=== PATIENT | female | born 1965 | race African-American/Black ===

== ENCOUNTER 2018-10-02 01:46 | Inpatient (IN) | payer MEDICARE, OTHER ==
[~2018-10-02] VITALS: Ht 165.1 cm; Wt 90.3 kg
[2018-10-02] MEDS ORDERED: METHYLPREDNISOLONE SOD SUCC 125 MG/2 ML VIAL IV STA (03:04)
[2018-10-02] MEDS ORDERED: ALBUTEROL (0.083%) 2.5MG/3ML NEB HHN STA (03:04)
[2018-10-02] MEDS ORDERED: IPRATROPIUM BROMIDE (0.02%) 0.5MG/2.5ML NEB HHN STA (03:04)
[2018-10-02] MEDS ORDERED: KETOROLAC 30MG/ML VIAL IV SCH (04:45)
[2018-10-02 09:01] LABS: BASOPHILS % 0.2 % (0.0-2.0); EOSINOPHILS % 0.1 % (0.0-5.0); HEMATOCRIT. 37.6 % (36.0-48.0); HEMOGLOBIN. 12.5 g/dL (12.0-16.0); LYMPHOCYTES % 8.5 % (20.0-50.0); MEAN CORPUSCULAR HEMOGLOBIN 32.1 pg (28.0-32.0); MEAN CORPUSCULAR VOLUME 96.5 fL (81.0-99.0); MEAN PLATELET VOLUME 7.2 fl (7.4-10.4); MONOCYTES % 1.8 % (2.0-8.0); NEUTROPHILS % 89.4 % (40.0-76.0); PLATELET 308 x1000/uL (130-400); RED BLOOD CELL COUNT 3.89 mill/uL (4.2-5.4); RED CELL DISTRIBUTION WIDTH 13.9 % (11.6-14.6)
[2018-10-02 09:08] LABS: CHLORIDE 106 mEq/L (98-107)
[2018-10-02] MEDS ORDERED: DEXTROSE 50% WATER 50ML SYRINGE IV PRN (09:30)
[2018-10-02] MEDS ORDERED: IPRATROPIUM/ALBUTEROL 0.5-3(2.5)MG/3ML NEB HHN PRN (09:30)
[2018-10-02] MEDS ORDERED: CLONIDINE 0.1MG TABLET PO PRN (09:30)
[2018-10-02 10:04] VITALS: BP 145/81
[2018-10-02] MEDS ORDERED: AZITHROMYCIN 500 MG TABLET PO SCH (10:45)
[2018-10-02] MEDS: METHYLPREDNISOLONE SOD SUCC 40 MG/ML VIAL IV SCH ×2 (10:55→17:07)
[2018-10-02] MEDS: AMLODIPINE 5MG TABLET PO SCH ×2 (10:56→21:30)
[2018-10-02] MEDS: GUAIFENESIN 600MG ER TABLET PO SCH ×2 (11:59→21:31)
[2018-10-02 12:00] VITALS: BP 136/72
[2018-10-02] MEDS: KETOROLAC 30MG/ML VIAL IV PRN ×2 (12:00→18:59)
[2018-10-02] MEDS: BLOOD SUGAR DIAGNOSTIC STRIP TEST SCH ×3 (12:42→21:24)
[2018-10-02] MEDS: INSULIN LISPRO 100 UNITS/ML SUBCUT SCH ×3 (12:42→21:33)
[2018-10-02 15:53] LABS: CLARITY URINE CLEAR (CLEAR); COLOR URINE YELLOW (YELLOW); KETONES URINE 1+ (NEGATIVE); LEUKOCYTE ESTERASE URINE NEGATIVE (NEGATIVE); NITRITE URINE NEGATIVE (NEGATIVE); OCCULT BLOOD URINE 1+ (NEGATIVE); PROTEIN URINE NEGATIVE (NEGATIVE); SPECIFIC GRAVITY URINE 1.031 (1.005-1.030); UROBILINOGEN URINE 0.2 E.U./dL (0.2-1.0)
[2018-10-02] MEDS: NICOTINE 14MG PATCH TD SCH (16:06)
[2018-10-02 16:07] LABS: *AMPHETAMINES SCREEN URINE NEGATIVE (NEGATIVE); *BARBITURATES SCREEN URINE NEGATIVE (NEGATIVE); *BENZODIAZEPINES SCREEN URINE NEGATIVE (NEGATIVE); *COCAINE SCREEN URINE NEGATIVE (NEGATIVE)
[2018-10-02 16:08] LABS: CANNABINOID URINE SCREEN NEGATIVE (NEGATIVE); METHADONE URINE SCREEN NEGATIVE (NEGATIVE); OPIATES URINE SCREEN PRESUMTIVE POSITIVE (NEGATIVE); PHENCYCLIDINE URINE SCREEN NEGATIVE (NEGATIVE)
[2018-10-02] MEDS: HYDROCODONE/ACETAMINOPHEN 10/325MG TABLET PO PRN ×2 (16:49→21:32)
[2018-10-02 17:00] VITALS: BP 125/74
[2018-10-02] MEDS: MONTELUKAST SODIUM 10MG TABLET PO SCH (17:07)
[2018-10-02 17:12] LABS: INR 1.5; PROTHROMBIN TIME 14.9 sec (9.1-11.1)
[2018-10-02] MEDS: IPRATROPIUM/ALBUTEROL 0.5-3(2.5)MG/3ML NEB HHN SCH ×2 (17:47→21:12)
[2018-10-02] MEDS ORDERED: WARFARIN SODIUM 10MG TABLET PO ONE (18:00)
[2018-10-02] MEDS ORDERED: LOSA1TAB34 PO (18:21)
[2018-10-02] MEDS ORDERED: ALBU4TAB6 PO (18:21)
[2018-10-02] MEDS ORDERED: FURO-151 PO (18:21)
[2018-10-02] MEDS ORDERED: S350 PO (18:21)
[2018-10-02] MEDS ORDERED: WARF10TA44 PO (18:21)
[2018-10-02] MEDS ORDERED: CALC-1098 PO (18:21)
[2018-10-02] MEDS ORDERED: FLUT1DIS6 INH (18:21)
[2018-10-02] MEDS ORDERED: TUSSL GT (18:21)
[2018-10-02 20:00] VITALS: BP 116/58
[2018-10-02] MEDS: FAMOTIDINE 20MG/2ML VIAL IV SCH (21:30)
[2018-10-03] VITALS (7 sets, daily range): BP systolic 105–141; BP diastolic 52–73
[2018-10-03] MEDS: IPRATROPIUM/ALBUTEROL 0.5-3(2.5)MG/3ML NEB HHN SCH ×6 (00:41→21:30)
[2018-10-03] MEDS: KETOROLAC 30MG/ML VIAL IV PRN ×2 (01:08→08:02)
[2018-10-03] MEDS: METHYLPREDNISOLONE SOD SUCC 40 MG/ML VIAL IV SCH ×3 (01:14→18:00)
[2018-10-03] MEDS: BENZONATATE 100MG CAPSULE PO PRN ×2 (04:14→12:07)
[2018-10-03] MEDS: HYDROCODONE/ACETAMINOPHEN 10/325MG TABLET PO PRN ×2 (05:51→10:07)
[2018-10-03 05:57] LABS: BASOPHILS % 0.5 % (0.0-2.0); HEMATOCRIT. 34.9 % (36.0-48.0); HEMOGLOBIN. 11.8 g/dL (12.0-16.0); LYMPHOCYTES % 8.6 % (20.0-50.0); MEAN CORPUSCULAR HEMOGLOBIN 32.5 pg (28.0-32.0); MEAN CORPUSCULAR VOLUME 96.1 fL (81.0-99.0); MEAN PLATELET VOLUME 7.3 fl (7.4-10.4); MONOCYTES % 4.3 % (2.0-8.0); NEUTROPHILS % 86.6 % (40.0-76.0); PLATELET 295 x1000/uL (130-400); RED BLOOD CELL COUNT 3.63 mill/uL (4.2-5.4); RED CELL DISTRIBUTION WIDTH 13.9 % (11.6-14.6)
[2018-10-03 06:33] LABS: CHLORIDE 108 mEq/L (98-107)
[2018-10-03] MEDS: BLOOD SUGAR DIAGNOSTIC STRIP TEST SCH ×4 (07:10→21:22)
[2018-10-03] MEDS: INSULIN LISPRO 100 UNITS/ML SUBCUT SCH ×4 (07:27→21:21)
[2018-10-03] MEDS: NICOTINE 14MG PATCH TD SCH (08:00)
[2018-10-03] MEDS: LORATADINE 10MG TABLET PO SCH (08:00)
[2018-10-03] MEDS: GUAIFENESIN 600MG ER TABLET PO SCH ×2 (08:00→21:12)
[2018-10-03] MEDS: AMLODIPINE 5MG TABLET PO SCH ×2 (08:01→21:12)
[2018-10-03] MEDS: FAMOTIDINE 20MG/2ML VIAL IV SCH ×2 (08:01→21:12)
[2018-10-03] MEDS: AZITHROMYCIN 250 MG TABLET PO SCH (08:02)
[2018-10-03] MEDS ORDERED: GUAIFENESIN/CODEINE 100-10MG/5ML UDC PO NR (15:00)
[2018-10-03] MEDS: HYDROMORPHONE HCL/PF 2MG/ML CPJ IV PRN ×2 (15:43→21:13)
[2018-10-03] MEDS ORDERED: WARFARIN SODIUM 10MG TABLET PO SCH (18:00)
[2018-10-03] MEDS: MONTELUKAST SODIUM 10MG TABLET PO SCH (18:00)
[2018-10-03] MEDS: TRIAMCINOLONE ACETONIDE 0.5% CREAM 15GM TOP SCH (21:00)
[2018-10-04] VITALS: BP 125/81
[2018-10-04] MEDS: GUAIFENESIN/CODEINE 100-10MG/5ML UDC PO PRN ×4 (00:15→21:40)
[2018-10-04] MEDS: IPRATROPIUM/ALBUTEROL 0.5-3(2.5)MG/3ML NEB HHN SCH ×6 (01:14→21:24)
[2018-10-04] MEDS: METHYLPREDNISOLONE SOD SUCC 40 MG/ML VIAL IV SCH ×3 (01:18→17:56)
[2018-10-04] MEDS: HYDROCODONE/ACETAMINOPHEN 10/325MG TABLET PO PRN (01:22)
[2018-10-04 04:00] VITALS: BP 145/73
[2018-10-04] MEDS: HYDROMORPHONE HCL/PF 2MG/ML CPJ IV PRN ×3 (05:19→20:34)
[2018-10-04 05:40] LABS: PROTHROMBIN TIME 20.2 sec (9.1-11.1)
[2018-10-04] MEDS: BLOOD SUGAR DIAGNOSTIC STRIP TEST SCH ×4 (06:16→21:36)
[2018-10-04] MEDS: INSULIN LISPRO 100 UNITS/ML SUBCUT SCH ×4 (06:16→21:00)
[2018-10-04 08:30] VITALS: BP 142/79
[2018-10-04] MEDS: TRIAMCINOLONE ACETONIDE 0.5% CREAM 15GM TOP SCH (09:00)
[2018-10-04] MEDS: KETOROLAC 30MG/ML VIAL IV PRN ×2 (09:16→17:56)
[2018-10-04] MEDS: AZITHROMYCIN 250 MG TABLET PO SCH (09:16)
[2018-10-04] MEDS: GUAIFENESIN 600MG ER TABLET PO SCH ×2 (09:16→20:31)
[2018-10-04] MEDS: FAMOTIDINE 20MG/2ML VIAL IV SCH ×2 (09:17→20:32)
[2018-10-04] MEDS: AMLODIPINE 5MG TABLET PO SCH ×2 (09:17→20:32)
[2018-10-04] MEDS: NICOTINE 14MG PATCH TD SCH (09:17)
[2018-10-04] MEDS: LORATADINE 10MG TABLET PO SCH (09:17)
[2018-10-04 11:45] VITALS: BP 149/79
[2018-10-04] MEDS ORDERED: TERBUTALINE SULFATE 1MG/ML VIAL SUBCUT NR (14:40)
[2018-10-04 16:30] VITALS: BP 151/76
[2018-10-04] MEDS: MONTELUKAST SODIUM 10MG TABLET PO SCH (17:55)
[2018-10-04] MEDS ORDERED: WARFARIN SODIUM 10MG TABLET PO SCH (18:00)
[2018-10-04] MEDS: FLUTICASONE PROPIONATE 50MCG/SPRAY BOTTLE BOTHNSTRLS SCH (20:32)
[2018-10-04] MEDS: BENZONATATE 100MG CAPSULE PO PRN (21:40)
[2018-10-05] VITALS (8 sets, daily range): BP systolic 120–156; BP diastolic 42–95
[2018-10-05] MEDS: IPRATROPIUM/ALBUTEROL 0.5-3(2.5)MG/3ML NEB HHN SCH ×6 (00:52→21:55)
[2018-10-05] MEDS: METHYLPREDNISOLONE SOD SUCC 40 MG/ML VIAL IV SCH ×3 (01:27→17:35)
[2018-10-05] MEDS: TRIAMCINOLONE ACETONIDE 0.5% CREAM 15GM TOP SCH ×2 (01:28→09:38)
[2018-10-05] MEDS: HYDROMORPHONE HCL/PF 2MG/ML CPJ IV PRN ×2 (03:30→12:44)
[2018-10-05] MEDS: BLOOD SUGAR DIAGNOSTIC STRIP TEST SCH ×4 (05:32→21:05)
[2018-10-05] MEDS: GUAIFENESIN/CODEINE 100-10MG/5ML UDC PO PRN ×2 (05:34→11:47)
[2018-10-05] MEDS: BENZONATATE 100MG CAPSULE PO PRN (05:35)
[2018-10-05] MEDS: INSULIN LISPRO 100 UNITS/ML SUBCUT SCH ×4 (05:42→21:16)
[2018-10-05 07:32] LABS: INR 2.1; PROTHROMBIN TIME 20.6 sec (9.1-11.1)
[2018-10-05 07:37] LABS: BASOPHILS % 0.2 % (0.0-2.0); HEMATOCRIT. 33.2 % (36.0-48.0); HEMOGLOBIN. 10.9 g/dL (12.0-16.0); LYMPHOCYTES % 9.9 % (20.0-50.0); MEAN CORPUSCULAR HEMOGLOBIN 31.9 pg (28.0-32.0); MEAN PLATELET VOLUME 7.5 fl (7.4-10.4); MONOCYTES % 5.5 % (2.0-8.0); NEUTROPHILS % 84.4 % (40.0-76.0); PLATELET 297 x1000/uL (130-400); RED BLOOD CELL COUNT 3.43 mill/uL (4.2-5.4)
[2018-10-05] MEDS: LORATADINE 10MG TABLET PO SCH (09:36)
[2018-10-05] MEDS: AZITHROMYCIN 250 MG TABLET PO SCH (09:36)
[2018-10-05] MEDS: GUAIFENESIN 600MG ER TABLET PO SCH ×2 (09:36→20:38)
[2018-10-05] MEDS: AMLODIPINE 5MG TABLET PO SCH ×2 (09:36→20:38)
[2018-10-05] MEDS: KETOROLAC 30MG/ML VIAL IV PRN ×2 (09:37→17:35)
[2018-10-05] MEDS: FAMOTIDINE 20MG/2ML VIAL IV SCH ×2 (09:37→20:38)
[2018-10-05] MEDS: FLUTICASONE PROPIONATE 50MCG/SPRAY BOTTLE BOTHNSTRLS SCH (09:37)
[2018-10-05] MEDS: NICOTINE 14MG PATCH TD SCH (09:37)
[2018-10-05 12:59] LABS: CHLORIDE 103 mEq/L (98-107)
[2018-10-05] MEDS ORDERED: TERBUTALINE SULFATE 1MG/ML VIAL SUBCUT NR (17:00)
[2018-10-05] MEDS: MONTELUKAST SODIUM 10MG TABLET PO SCH (17:35)
[2018-10-05] MEDS ORDERED: WARFARIN SODIUM 10MG TABLET PO NR (18:00)
[2018-10-06] VITALS: BP 130/67
[2018-10-06] MEDS: IPRATROPIUM/ALBUTEROL 0.5-3(2.5)MG/3ML NEB HHN SCH ×7 (01:46→23:39)
[2018-10-06] MEDS: METHYLPREDNISOLONE SOD SUCC 40 MG/ML VIAL IV SCH ×3 (02:29→17:02)
[2018-10-06] MEDS: GUAIFENESIN/CODEINE 100-10MG/5ML UDC PO PRN ×4 (02:29→22:29)
[2018-10-06] MEDS: TRIAMCINOLONE ACETONIDE 0.5% CREAM 15GM TOP SCH ×3 (02:30→20:37)
[2018-10-06] MEDS: FLUTICASONE PROPIONATE 50MCG/SPRAY BOTTLE BOTHNSTRLS SCH ×3 (02:31→20:37)
[2018-10-06] MEDS: KETOROLAC 30MG/ML VIAL IV PRN (03:35)
[2018-10-06 04:00] VITALS: BP 147/68
[2018-10-06] MEDS: BLOOD SUGAR DIAGNOSTIC STRIP TEST SCH ×4 (06:45→20:38)
[2018-10-06 06:59] LABS: INR 1.9
[2018-10-06 08:00] VITALS: BP 132/61
[2018-10-06] MEDS: GUAIFENESIN 600MG ER TABLET PO SCH ×2 (08:28→20:38)
[2018-10-06] MEDS: LORATADINE 10MG TABLET PO SCH (08:28)
[2018-10-06] MEDS: AZITHROMYCIN 250 MG TABLET PO SCH (08:29)
[2018-10-06] MEDS: FAMOTIDINE 20MG/2ML VIAL IV SCH ×2 (08:30→20:37)
[2018-10-06] MEDS: AMLODIPINE 5MG TABLET PO SCH ×2 (08:32→20:38)
[2018-10-06] MEDS: NICOTINE 14MG PATCH TD SCH (08:32)
[2018-10-06] MEDS: HYDROCODONE/ACETAMINOPHEN 10/325MG TABLET PO PRN ×2 (08:37→20:38)
[2018-10-06] MEDS: HYDROMORPHONE HCL/PF 2MG/ML CPJ IV PRN ×3 (09:57→22:29)
[2018-10-06] MEDS: INSULIN LISPRO 100 UNITS/ML SUBCUT SCH ×3 (11:45→21:05)
[2018-10-06 12:00] VITALS: BP 141/78
[2018-10-06 16:00] VITALS: BP 154/65
[2018-10-06] MEDS: MONTELUKAST SODIUM 10MG TABLET PO SCH (17:01)
[2018-10-06] MEDS ORDERED: WARFARIN SODIUM 2MG TABLET PO NR (18:00)
[2018-10-06] MEDS ORDERED: WARFARIN SODIUM 10MG TABLET PO NR (18:00)
[2018-10-06 20:00] VITALS: BP 136/72
[2018-10-07] VITALS: BP 160/78
[2018-10-07] MEDS: METHYLPREDNISOLONE SOD SUCC 40 MG/ML VIAL IV SCH ×2 (01:34→10:57)
[2018-10-07 04:00] VITALS: BP 134/62
[2018-10-07] MEDS: IPRATROPIUM/ALBUTEROL 0.5-3(2.5)MG/3ML NEB HHN SCH ×4 (04:10→17:15)
[2018-10-07] MEDS: GUAIFENESIN/CODEINE 100-10MG/5ML UDC PO PRN (04:22)
[2018-10-07] MEDS: HYDROMORPHONE HCL/PF 2MG/ML CPJ IV PRN ×2 (04:35→10:57)
[2018-10-07] MEDS: INSULIN LISPRO 100 UNITS/ML SUBCUT SCH ×2 (06:22→12:09)
[2018-10-07] MEDS: BLOOD SUGAR DIAGNOSTIC STRIP TEST SCH ×2 (06:22→12:09)
[2018-10-07 07:33] LABS: INR 1.7; PROTHROMBIN TIME 17.1 sec (9.1-11.1)
[2018-10-07 08:00] VITALS: BP 108/63
[2018-10-07] MEDS: TRIAMCINOLONE ACETONIDE 0.5% CREAM 15GM TOP SCH (08:40)
[2018-10-07] MEDS: GUAIFENESIN 600MG ER TABLET PO SCH (08:40)
[2018-10-07] MEDS: LORATADINE 10MG TABLET PO SCH (08:40)
[2018-10-07] MEDS: AZITHROMYCIN 250 MG TABLET PO SCH (08:40)
[2018-10-07] MEDS: FAMOTIDINE 20MG/2ML VIAL IV SCH (08:40)
[2018-10-07] MEDS: FLUTICASONE PROPIONATE 50MCG/SPRAY BOTTLE BOTHNSTRLS SCH (08:40)
[2018-10-07] MEDS: NICOTINE 14MG PATCH TD SCH (08:41)
[2018-10-07] MEDS: AMLODIPINE 5MG TABLET PO SCH (08:41)
[2018-10-07 12:00] VITALS: BP 115/68
[2018-10-07 16:00] VITALS: BP 122/68
[2018-10-07 17:13] VITALS: BP 122/75
[2018-10-07] MEDS ORDERED: WARFARIN SODIUM 10MG TABLET PO NR (18:00)
[2018-10-07] MEDS ORDERED: WARFARIN SODIUM 4MG TABLET PO NR (18:00)
== END 2018-10-07 18:40 | disposition home or self-care (01) | DRG 189 ==
LOC: ER 01:46 → EDBEDREQTM 04:26 → EDBEDREQ 04:26 → ENRESERV 06:42 → CANRESERV 06:42 → ENRESERV 07:12 → 8WST 10:23
PROVIDERS: ADMIT Internal Medicine; ATTEND Internal Medicine
DX: J96.00 Acute respiratory failure, unspecified whether with hypoxia or hypercapnia (principal); J44.1 Chronic obstructive pulmonary disease with (acute) exacerbation; E44.1 Mild protein-calorie malnutrition; J44.0 Chronic obstructive pulmonary disease with (acute) lower respiratory infection; M87.852 Other osteonecrosis, left femur; E66.01 Morbid (severe) obesity due to excess calories; Z96.642 Presence of left artificial hip joint; J20.9 Acute bronchitis, unspecified; F17.210 Nicotine dependence, cigarettes, uncomplicated; E11.9 Type 2 diabetes mellitus without complications; I10 Essential (primary) hypertension; M19.90 Unspecified osteoarthritis, unspecified site; Z76.5 Malingerer [conscious simulation]; Z86.718 Personal history of other venous thrombosis and embolism; Z68.33 Body mass index [BMI] 33.0-33.9, adult; Z71.6 Tobacco abuse counseling
CPT/HCPCS: 36415; 71045; 78580; 80048; 80305; 82962; 83036; 83880; 84484; 87804; 93005; 93970; 94640; 96374; 96375; 99285; C1893; J1170; J1815; J1885; J2920; J2930; J3105; J3490; J7611; J7620

== ENCOUNTER 2019-04-16 10:19 | Emergency (ER) | payer MEDICARE, MEDICAID ==
[~2019-04-16] VITALS: Ht 165.1 cm; Wt 141.0 kg
[~2019-04-16 10:19] MED LIST: ALBU4TAB6 PO; CALC-1098 PO; FLUT1DIS6 INH; FURO-151 PO; LOSA1TAB34 PO; S350 PO; TUSSL GT; WARF10TA44 PO
[2019-04-16] MEDS ORDERED: ONDANSETRON HCL 4MG/2ML INJ IM ONE (10:45)
[2019-04-16] MEDS ORDERED: MORPHINE SULFATE 4 MG/ML CPJ (NOT FOR IM USE) IV ONE (10:45)
[2019-04-16 11:36] LABS: INR 1.6; PARTIAL THROMBOPLASTIN TIME 41.1 sec (23.4-31.0); PROTHROMBIN TIME 16.3 sec (9.6-11.0)
[2019-04-16 11:38] LABS: CHLORIDE 107 mEq/L (98-107)
[2019-04-16 11:43] LABS: BASOPHILS % 0.7 % (0.0-2.0); EOSINOPHILS % 1.3 % (0.0-5.0); HEMATOCRIT. 37.1 % (36.0-48.0); HEMOGLOBIN. 12.6 g/dL (12.0-16.0); LYMPHOCYTES % 37.6 % (20.0-50.0); MEAN CORPUSCULAR HEMOGLOBIN 32.1 pg (28.0-32.0); MEAN CORPUSCULAR VOLUME 94.3 fL (81.0-99.0); MEAN PLATELET VOLUME 7.3 fl (7.4-10.4); MONOCYTES % 8.1 % (2.0-8.0); NEUTROPHILS % 52.3 % (40.0-76.0); PLATELET 321 x1000/uL (130-400); RED BLOOD CELL COUNT 3.93 mill/uL (4.2-5.4); RED CELL DISTRIBUTION WIDTH 14.3 % (11.6-14.6)
[2019-04-16 13:00] VITALS: BP 137/51
== END 2019-04-16 13:05 | disposition home or self-care (01) ==
LOC: ER 10:19
DX: M25.561 Pain in right knee (principal); I10 Essential (primary) hypertension; J44.9 Chronic obstructive pulmonary disease, unspecified; Z87.828 Personal history of other (healed) physical injury and trauma; Z86.718 Personal history of other venous thrombosis and embolism; Z79.01 Long term (current) use of anticoagulants; Z96.649 Presence of unspecified artificial hip joint; W22.8XXA Striking against or struck by other objects, initial encounter; Y93.89 Activity, other specified; Y92.810 Car as the place of occurrence of the external cause
CPT/HCPCS: 36415; 73560; 80053; 85025; 85610; 85730; 93970; 96372; 96374; 99284; J2270; J2405

== ENCOUNTER → 2019-08-20 | Outpatient (CLI) | payer MEDICARE, MEDICAID ==
[~2019-08-20] MED LIST changes: +ALBUTEROL (0.083%) 2.5MG/3ML NEB ONE; +CARI-166 PO; -FLUT1DIS6 INH; -S350 PO; -TUSSL GT
== END | disposition home or self-care (01) ==
LOC: PF 11:02
PROVIDERS: ATTEND Internal Medicine
DX: J44.9 Chronic obstructive pulmonary disease, unspecified (principal)
CPT/HCPCS: 94060; 94727; 94729; J7611

== ENCOUNTER 2019-08-22 11:40 | Emergency (ER) | payer MEDICARE, MEDICAID ==
[~2019-08-22] VITALS: Ht 170.2 cm; Wt 150.0 kg
[~2019-08-22 11:40] MED LIST changes: -ALBUTEROL (0.083%) 2.5MG/3ML NEB ONE
[2019-08-22] MEDS ORDERED: IBUPROFEN 800MG TABLET PO ONE (12:15)
[2019-08-22] MEDS ORDERED: ACETAMINOPHEN 500MG TABLET PO ONE (12:15)
[2019-08-22] MEDS ORDERED: OXYCODONE HCL 5MG TABLET PO ONE (13:45)
[2019-08-22 14:20] VITALS: BP 166/85
== END 2019-08-22 14:20 | disposition home or self-care (01) ==
LOC: ER 11:56
DX: M23.92 Unspecified internal derangement of left knee (principal); J44.9 Chronic obstructive pulmonary disease, unspecified; E11.9 Type 2 diabetes mellitus without complications; I10 Essential (primary) hypertension; Z86.718 Personal history of other venous thrombosis and embolism; Z96.649 Presence of unspecified artificial hip joint; Z79.01 Long term (current) use of anticoagulants
CPT/HCPCS: 73560; 99284

== ENCOUNTER 2019-12-01 09:30 | Day surgery (SDC) | payer MEDICARE, MEDICAID ==
[~2019-12-01] VITALS: Ht 165.1 cm; Wt 147.0 kg
[2019-12-01 08:55] LABS: HEMATOCRIT 33.5 % (36.0-48.0); HEMOGLOBIN 11.5 g/dL (12.0-16.0); MEAN CORPUSCULAR HEMOGLOBIN 32.8 pg (28.0-32.0); MEAN CORPUSCULAR VOLUME 95.7 fL (81.0-99.0); PLATELET 311 x1000/uL (130-400); RED CELL DISTRIBUTION WIDTH 13.4 % (11.6-14.6)
[2019-12-01 09:00] LABS: CHLORIDE 111 mEq/L (98-107)
[2019-12-01 09:02] LABS: PROTHROMBIN TIME 10.4 sec (9.6-11.0)
[2019-12-01 09:07] LABS: HCG SCREEN NEGATIVE
[~2019-12-01 09:30] MED LIST changes: -CARI-166 PO; +CARI350T28 PO; +FLUT1AER INH; +HYDR-4009 PO; +LOSA100T32 PO; +POTA10TA11 PO; +TRAZ-251 PO
[2019-12-01] MEDS ORDERED: LIDOCAINE HCL 1% 20ML VIAL (Pyxis) INJ ONE (09:46)
[2019-12-01] MEDS ORDERED: IODIXANOL 320MG/ML 100 ML BOTTLE IV ONE (09:46)
[2019-12-01] MEDS ORDERED: MIDAZOLAM HCL 2 MG/2 ML VIAL ONE (09:46)
[2019-12-01] MEDS ORDERED: FENTANYL CITRATE/PF 50MCG/ML 2ML VIAL ONE (09:46)
[2019-12-01] MEDS ORDERED: ACETAMINOPHEN 325MG TABLET PO PRN (10:30)
[2019-12-01] MEDS ORDERED: ONDANSETRON HCL 4MG/2ML INJ IV PRN (10:30)
[2019-12-01] MEDS ORDERED: MORPHINE SULFATE 2 MG/ML CPJ (NOT FOR IM USE) IV PRN (10:30)
[2019-12-01] MEDS ORDERED: HYDROCODONE/APAP 7.5/325MG 1 TAB TABLET PO PRN (13:00)
[2019-12-01 13:10] VITALS: BP 142/76
== END 2019-12-01 16:46 | disposition home or self-care (01) ==
LOC: OR 09:30
PROVIDERS: ATTEND Internal Medicine Cardiovascular Disease
DX: R94.39 Abnormal result of other cardiovascular function study (principal); I50.32 Chronic diastolic (congestive) heart failure; I82.409 Acute embolism and thrombosis of unspecified deep veins of unspecified lower extremity; E66.9 Obesity, unspecified; F17.210 Nicotine dependence, cigarettes, uncomplicated; Z79.01 Long term (current) use of anticoagulants; Z79.899 Other long term (current) drug therapy; Z68.43 Body mass index [BMI] 50.0-59.9, adult; Z82.49 Family history of ischemic heart disease and other diseases of the circulatory system
CPT/HCPCS: 36415; 80048; 84703; 85027; 85610; 93005; 93458; J1644; J2250; J2405; J3010; J3490; Q9967

== ENCOUNTER 2019-12-27 22:58 | Inpatient (IN) | payer MEDICARE, MEDICAID ==
[~2019-12-27] VITALS: Ht 165.1 cm; Wt 152.0 kg
[~2019-12-27 22:58] MED LIST changes: -LOSA1TAB34 PO
[2019-12-27] MEDS ORDERED: MAGNESIUM 2 G PREMIX 50 ML IV STA (23:03)
[2019-12-27] MEDS ORDERED: IPRATROPIUM BROMIDE (0.02%) 0.5MG/2.5ML NEB HHN STA (23:03)
[2019-12-27] MEDS ORDERED: ALBUTEROL (0.083%) 2.5MG/3ML NEB HHN STA (23:03)
[2019-12-27] MEDS ORDERED: METHYLPREDNISOLONE SOD SUCC 125 MG/2 ML VIAL IV STA (23:03)
[2019-12-28] VITALS (8 sets, daily range): BP systolic 133–189; BP diastolic 52–98
[2019-12-28] MEDS ORDERED: IBUPROFEN 600MG TABLET PO ONE (00:30)
[2019-12-28 00:48] LABS: CHLORIDE 109 mEq/L (98-107)
[2019-12-28 00:59] LABS: HEMOGLOBIN 12.7 g/dL (12.0-16.0); MEAN CORPUSCULAR HEMOGLOBIN 33.4 pg (28.0-32.0); MEAN CORPUSCULAR VOLUME 97.4 fL (81.0-99.0); PLATELET 234 x1000/uL (130-400); RED CELL DISTRIBUTION WIDTH 14.2 % (11.6-14.6)
[2019-12-28] MEDS ORDERED: POTASSIUM CHLORIDE INJ 40 MEQ in DEXT 5% WATER 500 ML IV NR (01:30)
[2019-12-28] MEDS ORDERED: MORPHINE SULFATE 2 MG/ML CPJ (NOT FOR IM USE) IV PRN ×2 (05:15)
[2019-12-28] MEDS: ACETYLCYSTEINE 100MG/ML 10% VIAL 4ML INH SCH (08:50)
[2019-12-28] MEDS ORDERED: PROM5SYR PO (11:29)
[2019-12-28] MEDS ORDERED: IPRATROPIUM/ALBUTEROL 0.5-3(2.5)MG/3ML NEB HHN PRN (11:30)
[2019-12-28] MEDS ORDERED: KETOROLAC 30MG/ML VIAL IV PRN (11:45)
[2019-12-28] MEDS ORDERED: ALBU05 NEB (11:48)
[2019-12-28] MEDS: GUAIFENESIN 600MG ER TABLET PO SCH ×2 (12:39→20:38)
[2019-12-28] MEDS: AMLODIPINE 5MG TABLET PO SCH ×2 (12:40→20:39)
[2019-12-28] MEDS: METHYLPREDNISOLONE SOD SUCC 40 MG/ML VIAL IV SCH ×2 (12:41→20:38)
[2019-12-28] MEDS: CEFTRIAXONE 1 G PREMIX 50 ML IV SCH (13:19)
[2019-12-28 14:11] LABS: HEPATITIS B SURFACE ANTIGEN NEGATIVE
[2019-12-28] MEDS: AZITHROMYCIN 500 MG in DEXT 5% WATER 250 ML IV SCH (14:14)
[2019-12-28] MEDS: LOSARTAN POTASSIUM 100 MG TABLET PO SCH (14:14)
[2019-12-28] MEDS: FUROSEMIDE 40MG/4ML VIAL IVP SCH (14:15)
[2019-12-28 14:41] LABS: HEPATITIS A AB IGM NEGATIVE (NEGATIVE)
[2019-12-28] MEDS: IPRATROPIUM/ALBUTEROL 0.5-3(2.5)MG/3ML NEB HHN SCH ×2 (15:28→20:39)
[2019-12-28 16:56] LABS: INR 1.1
[2019-12-28] MEDS ORDERED: WARFARIN SODIUM 5MG TABLET PO SCH (18:00)
[2019-12-28] MEDS ORDERED: ENOXAPARIN 40MG/0.4ML SYR SUBCUT SCH (21:00)
[2019-12-28] MEDS: BENZONATATE 100MG CAPSULE PO PRN (21:27)
[2019-12-28] MEDS: LORAZEPAM 2MG/ML CPJ IV PRN (21:27)
[2019-12-28] MEDS: HYDROCODONE/ACETAMINOPHEN 5/325MG TABLET PO PRN (21:28)
[2019-12-29] VITALS (12 sets, daily range): BP systolic 125–166; BP diastolic 44–97
[2019-12-29] MEDS: IPRATROPIUM/ALBUTEROL 0.5-3(2.5)MG/3ML NEB HHN SCH ×6 (01:07→20:11)
[2019-12-29] MEDS: METHYLPREDNISOLONE SOD SUCC 40 MG/ML VIAL IV SCH ×3 (04:44→21:18)
[2019-12-29] MEDS: HYDROCODONE/ACETAMINOPHEN 5/325MG TABLET PO PRN ×3 (04:54→17:32)
[2019-12-29 06:41] LABS: INR 0.9; PROTHROMBIN TIME 10.3 sec (9.6-11.0)
[2019-12-29] MEDS: GUAIFENESIN 600MG ER TABLET PO SCH ×2 (08:54→21:18)
[2019-12-29] MEDS: LOSARTAN POTASSIUM 100 MG TABLET PO SCH (08:55)
[2019-12-29] MEDS: FUROSEMIDE 40MG/4ML VIAL IVP SCH (08:56)
[2019-12-29] MEDS: AMLODIPINE 5MG TABLET PO SCH ×2 (08:56→21:18)
[2019-12-29] MEDS: CEFTRIAXONE 1 G PREMIX 50 ML IV SCH (12:00)
[2019-12-29] MEDS: LORAZEPAM 2MG/ML CPJ IV PRN ×2 (12:01→18:35)
[2019-12-29 12:12] LABS: CHLORIDE 104 mEq/L (98-107)
[2019-12-29] MEDS: AZITHROMYCIN 500 MG in DEXT 5% WATER 250 ML IV SCH (14:40)
[2019-12-29] MEDS: ACETYLCYSTEINE 100MG/ML 10% VIAL 4ML INH SCH (16:36)
[2019-12-29] MEDS ORDERED: WARFARIN SODIUM 10MG TABLET PO SCH (18:00)
[2019-12-29] MEDS: BENZONATATE 100MG CAPSULE PO PRN (20:27)
[2019-12-30] VITALS (10 sets, daily range): BP systolic 139–159; BP diastolic 62–125
[2019-12-30] MEDS: ACETYLCYSTEINE 100MG/ML 10% VIAL 4ML INH SCH ×2 (00:21→16:50)
[2019-12-30] MEDS: IPRATROPIUM/ALBUTEROL 0.5-3(2.5)MG/3ML NEB HHN SCH ×6 (00:21→21:08)
[2019-12-30] MEDS: LORAZEPAM 2MG/ML CPJ IV PRN ×3 (03:30→20:17)
[2019-12-30] MEDS: METHYLPREDNISOLONE SOD SUCC 40 MG/ML VIAL IV SCH ×3 (03:31→20:17)
[2019-12-30 07:25] LABS: PROTHROMBIN TIME 11.1 sec (9.6-11.0)
[2019-12-30] MEDS: FUROSEMIDE 40MG/4ML VIAL IVP SCH (08:32)
[2019-12-30] MEDS: HYDROCODONE/ACETAMINOPHEN 5/325MG TABLET PO PRN ×2 (08:33→17:58)
[2019-12-30] MEDS: LOSARTAN POTASSIUM 100 MG TABLET PO SCH (08:33)
[2019-12-30] MEDS: AMLODIPINE 5MG TABLET PO SCH ×2 (08:34→20:18)
[2019-12-30] MEDS: GUAIFENESIN 600MG ER TABLET PO SCH ×2 (08:34→20:18)
[2019-12-30] MEDS: CEFTRIAXONE 1 G PREMIX 50 ML IV SCH (11:25)
[2019-12-30 13:24] LABS: *AMPHETAMINES SCREEN URINE NEGATIVE (NEGATIVE); *BARBITURATES SCREEN URINE NEGATIVE (NEGATIVE)
[2019-12-30 13:25] LABS: *BENZODIAZEPINES SCREEN URINE NEGATIVE (NEGATIVE); *COCAINE SCREEN URINE NEGATIVE (NEGATIVE); CANNABINOID URINE SCREEN NEGATIVE (NEGATIVE); OPIATES URINE SCREEN PRESUMTIVE POSITIVE (NEGATIVE); PHENCYCLIDINE URINE SCREEN NEGATIVE (NEGATIVE)
[2019-12-30] MEDS ORDERED: TERBUTALINE SULFATE 1MG/ML VIAL SUBCUT NR (13:30)
[2019-12-30] MEDS ORDERED: FOLIC ACID 1MG TABLET PO SCH (14:00)
[2019-12-30] MEDS ORDERED: THIAMINE HCL 100MG TABLET PO SCH (14:00)
[2019-12-30] MEDS: AZITHROMYCIN 500 MG in DEXT 5% WATER 250 ML IV SCH (14:12)
[2019-12-30 15:15] LABS: METHADONE URINE SCREEN NEGATIVE (NEGATIVE)
[2019-12-30] MEDS ORDERED: WARFARIN SODIUM 7.5MG TABLET PO SCH (18:00)
[2019-12-31] VITALS (11 sets, daily range): BP systolic 131–161; BP diastolic 61–91
[2019-12-31] MEDS: HYDROCODONE/ACETAMINOPHEN 5/325MG TABLET PO PRN ×4 (00:08→23:11)
[2019-12-31] MEDS: ACETYLCYSTEINE 100MG/ML 10% VIAL 4ML INH SCH ×4 (00:20→16:25)
[2019-12-31] MEDS: IPRATROPIUM/ALBUTEROL 0.5-3(2.5)MG/3ML NEB HHN SCH ×6 (00:20→20:40)
[2019-12-31] MEDS: LORAZEPAM 2MG/ML CPJ IV PRN ×4 (01:48→23:10)
[2019-12-31] MEDS: METHYLPREDNISOLONE SOD SUCC 40 MG/ML VIAL IV SCH ×2 (03:47→11:54)
[2019-12-31 06:56] LABS: INR 1.1; PROTHROMBIN TIME 12.4 sec (9.6-11.0)
[2019-12-31 07:04] LABS: HEMATOCRIT 36.6 % (36.0-48.0); HEMOGLOBIN 12.3 g/dL (12.0-16.0); MEAN CORPUSCULAR HEMOGLOBIN 32.2 pg (28.0-32.0); MEAN CORPUSCULAR VOLUME 95.8 fL (81.0-99.0); PLATELET 286 x1000/uL (130-400); RED BLOOD CELL COUNT 3.82 mill/uL (4.2-5.4); RED CELL DISTRIBUTION WIDTH 13.8 % (11.6-14.6)
[2019-12-31] MEDS: FUROSEMIDE 40MG/4ML VIAL IVP SCH (08:46)
[2019-12-31] MEDS: GUAIFENESIN 600MG ER TABLET PO SCH ×2 (08:46→21:00)
[2019-12-31] MEDS: LOSARTAN POTASSIUM 100 MG TABLET PO SCH (08:47)
[2019-12-31] MEDS: AMLODIPINE 5MG TABLET PO SCH ×2 (08:47→23:17)
[2019-12-31] MEDS: CEFTRIAXONE 1 G PREMIX 50 ML IV SCH (11:54)
[2019-12-31] MEDS: AZITHROMYCIN 500 MG in DEXT 5% WATER 250 ML IV SCH (13:49)
[2019-12-31] MEDS ORDERED: WARFARIN SODIUM 10MG TABLET PO SCH (18:00)
[2019-12-31] MEDS ORDERED: WARFARIN SODIUM 2.5MG TABLET PO SCH (18:00)
[2019-12-31] MEDS: PREDNISONE 20MG TABLET PO SCH (18:55)
[2019-12-31] MEDS: CLONIDINE 0.1MG TABLET PO PRN ×2 (18:55→23:16)
[2020-01-01] VITALS (7 sets, daily range): BP systolic 97–165; BP diastolic 68–100
[2020-01-01] MEDS: ACETYLCYSTEINE 100MG/ML 10% VIAL 4ML INH SCH (00:21)
[2020-01-01] MEDS: IPRATROPIUM/ALBUTEROL 0.5-3(2.5)MG/3ML NEB HHN SCH ×3 (00:21→09:24)
[2020-01-01 06:16] LABS: INR 1.4; PROTHROMBIN TIME 14.9 sec (9.6-11.0)
[2020-01-01] MEDS: GUAIFENESIN 600MG ER TABLET PO SCH (08:24)
[2020-01-01] MEDS: PREDNISONE 20MG TABLET PO SCH (08:24)
[2020-01-01] MEDS: LOSARTAN POTASSIUM 100 MG TABLET PO SCH (08:28)
[2020-01-01] MEDS: AMLODIPINE 5MG TABLET PO SCH (08:28)
[2020-01-01] MEDS ORDERED: AZITHROMYCIN 500 MG TABLET PO SCH (09:00)
[2020-01-01] MEDS: FUROSEMIDE 40MG/4ML VIAL IVP SCH (09:00)
[2020-01-01] MEDS ORDERED: ALBU18HF2 IH ×2 (12:32→12:33)
[2020-01-01] MEDS ORDERED: MED4 MT ×2 (12:32→12:33)
[2020-01-01] MEDS ORDERED: GUAI600T26 MT ×2 (12:32→12:33)
[2020-01-01] MEDS ORDERED: BENZ-16 MT ×2 (12:32→12:33)
== END 2020-01-01 13:20 | disposition home or self-care (01) | DRG 291 ==
LOC: ER 22:58 → 5EST 12-28 00:11 → ENRESERV 12-28 08:06 → 5EST 12-28 10:26
PROVIDERS: ADMIT Internal Medicine; ATTEND Internal Medicine
PROC: 5A09357 Assistance with Respiratory Ventilation, Less than 24 Consecutive Hours, Continuous Positive Airway Pressure (ICD-10-PCS; principal; 2019-12-27)
PROC: 5A09357 Assistance with Respiratory Ventilation, Less than 24 Consecutive Hours, Continuous Positive Airway Pressure (ICD-10-PCS; 2019-12-28)
DX: I11.0 Hypertensive heart disease with heart failure (principal); J96.00 Acute respiratory failure, unspecified whether with hypoxia or hypercapnia; J44.1 Chronic obstructive pulmonary disease with (acute) exacerbation; E44.1 Mild protein-calorie malnutrition; Z68.43 Body mass index [BMI] 50.0-59.9, adult; E66.2 Morbid (severe) obesity with alveolar hypoventilation; I50.33 Acute on chronic diastolic (congestive) heart failure; J06.9 Acute upper respiratory infection, unspecified; E87.6 Hypokalemia; E78.5 Hyperlipidemia, unspecified; E87.8 Other disorders of electrolyte and fluid balance, not elsewhere classified; F17.210 Nicotine dependence, cigarettes, uncomplicated; Z96.642 Presence of left artificial hip joint; R74.0 Nonspecific elevation of levels of transaminase and lactic acid dehydrogenase [LDH]; Z79.899 Other long term (current) drug therapy; Z71.6 Tobacco abuse counseling; Z71.89 Other specified counseling; Z86.718 Personal history of other venous thrombosis and embolism
CPT/HCPCS: 36415; 71045; 80048; 80053; 80305; 83880; 85027; 86705; 86709; 86803; 87340; 93970; 94640; 94644; 94660; 99291; J0456; J0696; J1885; J1940; J2060; J2270; J2920; J2930; J3105; J3475; J3480; J7060; J7512; J7608

== ENCOUNTER → 2020-10-24 | Outpatient (CLI) | payer MEDICARE, MEDICAID ==
[~2020-10-24] MED LIST changes: +ALBU05 NEB; +ALBU18HF2 IH; +BARIUM SULFATE 450ML ORAL SUSP ONE; +BENZ-16 MT; +GUAI600T26 MT; +MED4 MT; +PROM5SYR PO
== END | disposition home or self-care (01) ==
LOC: CT 09:28
PROVIDERS: ATTEND Internal Medicine Gastroenterology
DX: K57.30 Diverticulosis of large intestine without perforation or abscess without bleeding (principal); J98.11 Atelectasis; N32.89 Other specified disorders of bladder; I70.90 Unspecified atherosclerosis
CPT/HCPCS: 74176